=== PATIENT | female | born 1980 | race Caucasian/White ===

== ENCOUNTER 2017-04-06 08:41 | Day surgery (SDC) | payer OTHER ==
--- NOTE | ~2017-04-06 | OP ---
Record Of Operation [facility] [address] [place]. [address] NAME: LORY ALVES DDS : 80 STATUS : REG [facility] [place] PAT#: [id number] AGE: 36 ADM/REG DATE : 04/06/17 MR#: [id number] REPORT SERV DATE: 04/06/17 DICTATED BY: RIOS IBARRA DATE: 04/06/17 REPORT STATUS : Draft TRANSCRIBED BY: MODL DATE: 04/06/17 DATE OF PROCEDURE: 04/06/2017 PREOPERATIVE DIAGNOSES: 1. Right chronic ethmoid sinusitis. 2. Right chronic maxillary sinusitis. POSTOPERATIVE DIAGNOSES: 1. Right chronic ethmoid sinusitis. 2. Right chronic maxillary sinusitis. PROCEDURES: 1. Right endoscopic total ethmoidectomy. 2. Right endoscopic maxillary sinus antrostomy with sigmoid sinus irrigation and culture. ANESTHESIA: General. COMPLICATIONS: None. COUNTS: All counts were correct following the procedure. ESTIMATED BLOOD LOSS: 5 mL. PREOPERATIVE INFORMED CONSENT: We discussed the risks and benefits of the surgery to include but not limited to bleeding, infection, possible scarring requiring revision surgery, possible ocular injury including blindness, possible CSF leak, possible persistent sinus disease despite surgery, and consent is on the chart. DESCRIPTION OF PROCEDURE: The patient was brought to the operative suite, placed on the operating room table in supine position. General endotracheal anesthesia was initiated without incident. The patient's head and neck were cleaned, prepped and draped in the usual sterile fashion. Following this, the right side of the nose was injected with the inferior middle turbinate, and uncinate processes were injected with approximately 5 mL of 1% lidocaine and 1:100,000 epinephrine for hemostasis. Following this, using a zero-degree endoscope, the lower portion of the uncinate process was taken down using pediatric backbiting forceps, and the remainder of the uncinate processes were taken down using the Xomed sinus shaver. Then, the ethmoid bulla was opened widely using the Xomed sinus shaver and then the basal lamella of the middle turbinate was penetrated using the Xomed sinus shaver from a posterior to anterior fashion. The posterior-anterior ethmoid air cells were marsupialized. Then, attention was taken back to the maxillary sinus where a curved olive- tip suction was placed through the ostium and the maxillary sinus contents which were noted to be thick white purulent drainage, was suctioned into a Lukens trap, and sent for Gram stain, fungal stain, and C and S. The remainder of the contents were copiously irrigated with sterile saline and suctioned until clear. The nasopharynx was suctioned free of any blood clots. The patient was awakened from anesthesia, and taken to the recovery room in stable condition. Record Of Operation [address] [place]. [address] NAME: LONG PAWANJERALDLORY W : 80 STATUS : REG [facility] [place] PAT#: [id number] AGE: 36 ADM/REG DATE : 04/06/17 MR#: [id number] REPORT SERV DATE: 04/06/17 DICTATED BY: RIOS IBARRA DATE: 04/06/17 REPORT STATUS : Draft TRANSCRIBED BY: WAYLON DATE: 04/06/17 IVETT/WAYLON Rios Ibarra M.D. / [id number] CC: Rios Ibarra M.D.
[~2017-04-06 08:41] MED LIST: IBU400; T
== END 2017-04-06 23:59 | disposition home or self-care (01) ==
LOC: MSC 08:41
PROVIDERS: Otolaryngology
PROC: 09TU4ZZ Resection of Right Ethmoid Sinus, Percutaneous Endoscopic Approach (ICD-10-PCS; 2017-04-06)
PROC: 099Q4ZZ Drainage of Right Maxillary Sinus, Percutaneous Endoscopic Approach (ICD-10-PCS; principal; 2017-04-06 10:00)
DX: J32.8 Other chronic sinusitis (principal); J32.2 Chronic ethmoidal sinusitis; J32.0 Chronic maxillary sinusitis; Z98.890 Other specified postprocedural states
CPT/HCPCS: 84703; 87070; 87075; 87102; 87205; 88305; A9270-GY; J0690; J2250; J2405; J2710; J3010